=== PATIENT | female | born 1980 | race Caucasian/White ===

== ENCOUNTER 2017-11-21 13:41 | Emergency (ER) ==
[2017-11-21 13:48] VITALS: BP 124/85; TEMP 97.4; BMI 34.7
--- NOTE | 2017-11-21 14:26 | ED.PDOC ---
General ED Provider: Dr. SUSY MOCTEZUMA Chief Complaint: Constipation Stated Complaint: CONSTIPATION Time Seen by Physician: 13:55 Mode of Arrival: Walk-In Information Source: Patient Exam Limitations: No limitations Primary Care Provider: CHRIS CALLAWAY Nursing and Triage Documentation Reviewed and Agree: Yes Reviewed sepsis parameters & appropriate labs ordered?: Yes System Inflammatory Response Syndrome: Not Applicable Sepsis Protocol: For patient's 13 years and over: Temp is 96.8 and below OR 101 and greater Pulse >90 BPM Resp >20/minute Acutely Altered Mental Status Are patient's symptoms suggestive of a new infection, such as: -Pneumonia -Skin, Soft Tissue -Endocarditis -UTI -Bone, Joint Infection -Implantable Device -Acute Abdominal Infection -Wound Infection -Meningitis -Blood Stream Catheter Infection -Unknown System Inflammatory Response Syndrome: Not Applicable GI Complaint Exam - Abdominal Pain Complaint/Exam Onset: Gradual Duration: WORSE TODAY ON SUBOXONE Symptoms Are: Still present Timing: Intermittent Initial Severity: Mild Current Severity: Mild Location of Pain: Diffuse Character: Reports: Dull Aggravating: Reports: None Alleviating: Reports: None Associated Signs and Symptoms: Denies: Diaphoresis, Fever, Cough, Chest pain, Dizziness, Back pain, Constipation, Blood in stool, Dysuria, Urinary frequency, Decreased urine output, Decreased appetite, Vaginal bleeding, Vaginal discharge , Nausea, Vomiting, Diarrhea, Sore throat, Decreased activity Related History: Reports: Similar episode AAA Risk Factors: Reports: None Cardiac Risk Factors: Reports: None Ectopic Risk Factors: Reports: None Ovarian Torsion Risk Factors: Reports: None Surgical Obstruction Risk Factors: Reports: None Related Surgical History: Reports: None Patient Rh Status: Unknown Abdominal Findings: Present: None Review of Systems - Review Of Systems Constitutional: Reports: No symptoms Eyes: Reports: No symptoms Ears, Nose, Mouth, Throat: Reports: No symptoms Respiratory: Reports: No symptoms Cardiac: Reports: No symptoms GI: Reports: Abdominal pain, Constipated : Reports: No symptoms Musculoskeletal: Reports: No symptoms Skin: Reports: No symptoms Neurological: Reports: No symptoms Endocrine: Reports: No symptoms Hematologic/Lymphatic: Reports: No symptoms All Other Systems: Reviewed and Negative Past Medical History - Past Medical History Previously Healthy: Yes Endocrine: Reports: None Cardiovascular: Reports: None Respiratory: Reports: None Hematological: Reports: None Gastrointestinal: Reports: None Genitourinary: Reports: None Neuro/Psych: Reports: None Musculoskeletal: Reports: None Cancer: Reports: None Last Menstrual Period: LAST YEAR - Surgical History General Surgical History: Reports: None - Family History Family History: Reports: None - Social History Smoking Status: Current every day smoker Hx Substance Use: Yes Alcohol Screening: None Physical Exam - Physical Exam Appearance: Well-appearing, No pain distress, Well-nourished Eyes: ASHLEIGH, EOMI, Conjunctiva clear ENT: Ears normal, Nose normal, Oropharynx normal Respiratory: Airway patent, Breath sounds clear, Breath sounds equal, Respirations nonlabored Cardiovascular: RRR, Pulses normal, No rub, No murmur GI/: Soft, Nontender, No masses, Bowel sounds normal, No Organomegaly Musculoskeletal: Normal strength, ROM intact, No edema, No calf tenderness Skin: Warm, Dry, Normal color Neurological: Sensation intact, Motor intact, Reflexes intact, Cranial nerves intact, Alert, Oriented Psychiatric: Affect appropriate, Mood appropriate Critical Care Note - Critical Care Note Total Time (mins): 0 Course - Course Orders, Labs, Meds: Orders Category Date Time Status URINALYSIS C & S IF INDICATED Stat LAB 11/21/17 13:[address] ABDOMEN/PELVIS WO CONTRAST Stat RADS 11/21/17 13:58 Ordered Vital Signs: Temp Pulse Resp BP Pulse Ox 11/21/17 13:44 97.4 F L 66 18 124/85 99 Departure - Departure Time of Disposition: 15:07 Disposition: HOME SELF-CARE Discharge Problem: Constipation Instructions: Constipation (ED) Condition: Good Pt referred to PMD for follow-up: Yes IPMP verified?: No Additional Instructions: Please call your Family Physician as soon as possible to schedule a follow-up appointment. Allergies/Adverse Reactions: Allergies No Known Allergies Allergy (Verified 11/21/17 13:41) Home Medications: Ambulatory Orders Buprenorphine HCl/Naloxone HCl [Suboxone 8 mg-2 mg Sl Film] 20 mg SL BID Etonogestrel [Nexplanon] 68 mg SQ ONCE 11/21/17 Disposition Discussed With: Patient
--- NOTE | 2017-11-21 15:38 | CT ---
EXAM: CT ABDOMEN AND PELVIS HISTORY: Abdominal pain and constipation TECHNIQUE: CT abdomen and pelvis without intravenous contrast. Images were reconstructed using 5 mm section thickness. Reformations were prepared. COMPARISON: None FINDINGS: Diagnostic limitations exist without including contrast enhanced images. No focal hepatic or splenic lesions identified. Gallbladder, pancreas and adrenal glands are unremarkable. Kidneys and ureters are unremarkable. Trace atherosclerotic disease. Normal aortic caliber. There are scattered mesen teric lymph nodes extending into the right lower quadrant with largest measuring about 6 mm. These a re nonspecific although greater in number than normally seen for patient age. Conceivably mesenteric adenitis could be considered. Less likely early malignant lymphadenopathy. Stomach is within normal limits. There is a tiny appendicolith measuring about 3 mm and an otherwise unremarkable appendix. There is slight excess fecal retention within the mid transverse colon. Othe rwise no excess fecal load is suggested and the bowel gas pattern is normal. Uterus and urinary blad karel appear normal. There is no ascites. No ventral abdominal wall hernia. Bones reveal no acute abnormality. The lung bases are clear and n o pneumoperitoneum is seen. IMPRESSION: 1. Excess fecal retention mid transverse colon without obvious etiology. Otherwise no excess fecal load is seen. Bowel gas pattern remains within normal limits. 2. Several prominent mesenteric lymph nodes, nonspecific. 3. Appendicolith with no appendicitis.
== END 2017-11-21 15:51 | disposition home or self-care (01) ==
LOC: ED 13:41
DX: K59.00 Constipation, unspecified (principal); R10.84 Generalized abdominal pain; F17.210 Nicotine dependence, cigarettes, uncomplicated
CPT/HCPCS: 99282